=== PATIENT | male | born 1975 | race African-American/Black ===

== ENCOUNTER 2021-04-07 07:49 | Outpatient (CLI) | payer OTHER ==
[~2021-04-07 07:49] MED LIST: REGADENOSON 0.4 MG/5 ML SYRINGE ONE
== END 2021-04-07 23:59 | disposition home or self-care (01) ==
LOC: CFH 07:49
PROVIDERS: ATTEND Registered Nurse
DX: Z01.810 Encounter for preprocedural cardiovascular examination (principal); I10 Essential (primary) hypertension; R06.00 Dyspnea, unspecified; R94.31 Abnormal electrocardiogram [ECG] [EKG]
CPT/HCPCS: 78452; A9502; J2785

== ENCOUNTER 2021-04-21 07:55 | Day surgery (SDC) | payer OTHER ==
[~2021-04-21] VITALS: Ht 193 cm; Wt 130.0 kg
[2021-04-21] MEDS ORDERED: EZET10TA70 PO (08:54)
[2021-04-21] MEDS ORDERED: AMLO-150 PO (08:54)
[2021-04-21] MEDS ORDERED: ROSU40TA PO (08:55)
[2021-04-21] MEDS ORDERED: LOSA100T14 PO (08:55)
[2021-04-21] MEDS ORDERED: SPIR50TA PO (08:56)
[2021-04-21] MEDS ORDERED: ADAL40KI IM (08:57)
[2021-04-21 09:02] VITALS: BP 129/94
[2021-04-21 09:13] LABS: BASOPHILS % (AUTO) 1 % (0-1); EOSINOPHILS % (AUTO) 5 % (1-7); LYMPHOCYTES % (AUTO) 31 % (22-44); MEAN CORPUSCULAR HEMOGLOBIN 32.8 pg (27.5-34.5); MEAN PLATELET VOLUME 8.7 fL (7.4-10.4); MONOCYTES % (AUTO) 11 % (2-9); NEUTROPHILS % (AUTO) 53 % (42-75); PLATELET COUNT 239 x10^3/uL (130-400); RED BLOOD COUNT 4.51 x10^6/uL (4.38-5.82); RED CELL DISTRIBUTION WIDTH 13.1 % (9.4-14.8)
[2021-04-21 09:23] LABS: ANION GAP 5 mmol/L (5-15); CALCIUM 8.7 mg/dL (8.5-10.1); CHLORIDE 110 mmol/L (98-107); CREATININE 0.94 mg/dL (0.7-1.3); INTERNATIONAL NORMALIZED RATIO 1.03 (0.93-1.1)
[2021-04-21 09:24] LABS: ALANINE AMINOTRANSFERASE 27 U/L (12-78); ALBUMIN 4.1 g/dL (3.4-5.0)
[2021-04-21 09:26] LABS: ALKALINE PHOSPHATASE 71 U/L (45-117); BILIRUBIN,TOTAL 0.5 mg/dL (0.2-1.0)
[2021-04-21] MEDS ORDERED: VERAPAMIL 2.5 MG/ML, 2ML ONE (09:38)
[2021-04-21] MEDS ORDERED: MIDAZOLAM 1 MG/ML, 5ML ONE (09:38)
[2021-04-21] MEDS ORDERED: FENTANYL PF 100 MCG/2ML ONE (09:38)
[2021-04-21] MEDS ORDERED: LIDOCAINE-MPF 1%, 5ML ONE (09:39)
[2021-04-21] MEDS ORDERED: HEPARIN 1,000 UNITS/ML, 10ML ONE (09:39)
[2021-04-21] MEDS ORDERED: SODIUM CHLORIDE 0.9% 1,000 ML IV SCH (11:00)
== END 2021-04-21 13:45 | disposition home or self-care (01) ==
LOC: CACL 07:55
PROVIDERS: ATTEND Internal Medicine Cardiovascular Disease
DX: R94.39 Abnormal result of other cardiovascular function study (principal); I49.3 Ventricular premature depolarization; I10 Essential (primary) hypertension; E78.2 Mixed hyperlipidemia; G47.30 Sleep apnea, unspecified; E66.3 Overweight; Z68.35 Body mass index [BMI] 35.0-35.9, adult; Z79.01 Long term (current) use of anticoagulants; Z79.899 Other long term (current) drug therapy
CPT/HCPCS: 36415; 80053; 85025; 85610; 93458; 99156; C1769; C1894; J1644; J2250; J3010; Q9967